=== PATIENT | female | born 1990 | race Asian ===

== ENCOUNTER 2017-08-21 12:18 | Emergency (ER) | payer OTHER ==
[~2017-08-21] VITALS: Ht 160 cm; Wt 61.2 kg
[2017-08-21] MEDS ORDERED: HYDROcodone/APAP 5 MG/325 MG (LORTAB) TAB PO ONE (14:00)
[2017-08-21 14:01] LABS: BASOPHILS % (AUTO) 1 % (0-10); EOSINOPHILS # (AUTO) 0.1 10^3/uL (0.0-0.3); EOSINOPHILS % (AUTO) 2 % (0-10); LYMPHOCYTES # (AUTO) 2.6 X 10^3 (1.0-4.0); LYMPHOCYTES % (AUTO) 44 % (12-44); MEAN CORPUSCULAR HEMOGLOBIN 28 PG (25-34); MEAN CORPUSCULAR HGB CONC 34 G/DL (32-36); MEAN CORPUSCULAR VOLUME 81 FL (80-99); MEAN PLATELET VOLUME 10.4 FL (7.4-10.4); MONOCYTES # (AUTO) 0.7 X 10^3 (0.0-1.0); MONOCYTES % (AUTO) 11 % (0-12); NEUTROPHILS # (AUTO) 2.5 X 10^3 (1.8-7.8); NEUTROPHILS % (AUTO) 42 % (42-75); PLATELET COUNT 267 10^3/uL (130-400); RED BLOOD COUNT 4.71 10^6/uL (4.35-5.85); RED CELL DISTRIBUTION WIDTH 13.3 % (10.0-14.5); WHITE BLOOD COUNT 5.9 10^3/uL (4.3-11.0)
--- NOTE | 2017-08-21 14:33 | ED GU-Female ---
General Chief Complaint: -Female Stated Complaint: BLEEDING,POSITIVE PREG TEST Nursing Triage Note: PT. IS PER . PT. STARTED BLEEDING YESTERDAY AT 10PM. PT. HAS PAIN TO LOWER ABD THAT RADIATES TO HER BACK Nursing Sepsis Screen: No Definite Risk Source: patient Exam Limitations: no limitations History of Present Illness Time seen by provider: 14:30 Initial Comments To ER with lower vaginal bleeding and abdominal cramping. His began yesterday at 10 p.m. Just found out yesterday that she was . . Started Tamiflu yesterday for upper respiratory infection. Timing/Duration: yesterday Severity/Quality: moderate Location: suprapubic Radiation: none Activities at Onset: none Prior Genitourinary Problems: none Associated Symptoms: denies symptoms Allergies and Home Medications Allergies Coded Allergies: No Known Drug Allergies (Unverified , 08/21/17) Constitutional: see HPI EENTM: see HPI Respiratory: no symptoms reported Cardiovascular: no symptoms reported Genitourinary: see HPI Musculoskeletal: no symptoms reported Skin: no symptoms reported Psychiatric/Neurological: No Symptoms Reported Past Sflxiqi-Vgknld-Cjqaxr Hx Patient Social History Alcohol Use: Denies Use Recreational Drug Use: No Smoking Status: Never a Smoker Recent Foreign Travel: No Contact w/Someone Who Travel: No Recent Infectious Disease Expo: No Recent Hopitalizations: No Surgeries History of Surgeries: No Respiratory History of Respiratory Disorde: No Cardiovascular History of Cardiac Disorders: No Neurological History of Neurological Disord: No Reproductive System : Yes Last Menstrual Period: Jul 15, 2017 Genitourinary History of Genitourinary Disor: No Gastrointestinal History of Gastrointestinal Di: No Musculoskeletal History of Musculoskeletal Dis: No Endocrine History of Endocrine Disorders: No HEENT History of HEENT Disorders: No Cancer History of Cancer: No Psychosocial History of Psychiatric Problem: No Integumentary History of Skin or Integumenta: No Blood Transfusions History of Blood Disorders: No Adverse Reaction to a Blood Tr: No Physical Exam Vital Signs Vital Sign - Last 12Hours 08/21/17 13:33 Temp 98.4 Pulse 72 Resp 18 B/P (MAP) 116/78 (91) Pulse Ox 99 Capillary Refill : Less Than 3 Seconds General Appearance: WD/WN, no apparent distress HEENT: PERRL/EOMI, normal ENT inspection Neck: non-tender, full range of motion Respiratory: no respiratory distress, no accessory muscle use Gastrointestinal: non tender, soft, tenderness ( implantation) Neurologic/Psychiatric: alert, normal mood/affect, oriented x 3 Skin: normal color, warm/dry Progress/Results/Core Measures Suspected Sepsis Recent Fever Within 48 Hours: Yes Infection Criteria Present: None New/Unexplained Altered Menta: No Sepsis Screen: No Definite Risk Sepsis Diagnosis: SIRS Temperature:98.4 Pulse: 72 Respiratory Rate: 18 Laboratory Tests 08/21/17 13:53: White Blood Count 5.9 Blood Pressure 116 /78 Mean: 91 Laboratory Tests 08/21/17 13:53: Platelet Count 267 Results/Orders Lab Results Laboratory Tests Test 08/21/17 13:53 Range/Units White Blood Count 5.9 4.3-11.0 10^3/uL Red Blood Count 4.71 4.35-5.85 10^6/uL Hemoglobin 13.1 11.5-16.0 G/DL Hematocrit 38 35-52 % Mean Corpuscular Volume 81 80-99 FL Mean Corpuscular Hemoglobin 28 25-34 PG Mean Corpuscular Hemoglobin Concent 34 32-36 G/DL Red Cell Distribution Width 13.3 10.0-14.5 % Platelet Count 267 130-400 10^3/uL Mean Platelet Volume 10.4 7.4-10.4 FL Neutrophils (%) (Auto) 42 42-75 % Lymphocytes (%) (Auto) 44 12-44 % Monocytes (%) (Auto) 11 0-12 % Eosinophils (%) (Auto) 2 0-10 % Basophils (%) (Auto) 1 0-10 % Neutrophils # (Auto) 2.5 1.8-7.8 X 10^3 Lymphocytes # (Auto) 2.6 1.0-4.0 X 10^3 Monocytes # (Auto) 0.7 0.0-1.0 X 10^3 Eosinophils # (Auto) 0.1 0.0-0.3 10^3/uL Basophils # (Auto) 0.0 0.0-0.1 10^3/uL Human Chorionic Gonadotropin, Quant 55 H <5 MIU/ML My Orders Orders - EWELINA SALAZAR [employer] PROFESSIONAL Cbc With Automated Diff (08/21/17 13:04) Abo Rh Type (08/21/17 13:04) Hcg,Quantitative (08/21/17 13:04) Ua Culture If Indicated (08/21/17 13:04) Hydrocodone/Apap 5/325 Tablet (Lortab 5 (08/21/17 14:00) Us Ob<14 Wks Sngle W/Transvag (08/21/17 13:57) Medications Given in ED Current Medications Medications Dose Ordered Sig/Oskar Route Start Time Stop Time Status Last Admin Dose Admin Acetaminophen/ Hydrocodone Bitart 1 tab ONCE ONCE PO 08/21/17 14:00 08/21/17 14:01 DC 08/21/17 14:02 1 TAB Vital Signs/I&O Vital Sign - Last 12Hours 08/21/17 13:33 Temp 98.4 Pulse 72 Resp 18 B/P (MAP) 116/78 (91) Pulse Ox 99 Capillary Refill : Less Than 3 Seconds Blood Pressure Mean: 91 Departure Impression Impression: Primary Impression: test positive Additional Impression: Vaginal bleeding Disposition: 01 HOME, SELF-CARE Condition: Stable Departure-Patient Inst. Decision time for Depature: 14:31 Referrals: NO,LOCAL PHYSICIAN (PCP/Family) Primary Care Physician Patient Instructions: IRREGULAR VAGINAL BLEEDING, - The First Month Add. Discharge Instructions: The pain that you are having in addition to the vaginal bleeding in the barely positive test likely represents a miscarriage. We expect cramping and bleeding will persist for a day or 2 as well as passage of some blood clots and tissue. Either way, you should follow up with your regular physician next week to recheck the hCG levels (Blood work) All discharge instructions reviewed with patient and/or family. Voiced understanding. EWELINA SALAZAR APRN Aug 21, 2017 14:33
[2017-08-21 14:36] LABS: BILIRUBIN,URINE NEGATIVE (NEGATIVE); KETONES,URINE NEGATIVE (NEGATIVE); LEUKOCYTE ESTERASE ,URINE 1+ (NEGATIVE); NITRITE,URINE NEGATIVE (NEGATIVE); PH,URINE 6 (5-9); PROTEIN,URINE NEGATIVE (NEGATIVE); UROBILINOGEN,URINE NORMAL (NORMAL)
[2017-08-21 14:43] LABS: SQUAMOUS EPITHELIAL CELL,UR 0-2 /HPF; WBC,URINE 0-2 /HPF
[2017-08-21 15:03] VITALS: BP 118/76
--- NOTE | 2017-08-21 15:22 | Diagnostic Imaging Report ---
EXAMINATION: OB ultrasound. INDICATION: Bleeding and passage of a large clot. FINDINGS: The uterus is 6.5 x 4.5 x 3.7 cm in size. The endometrial stripe is 6 mm in thickness. There is no intrauterine identified. The right ovary is 3.6 x 1.8 x 2.2 cm and the left ovary is 3.4 x 2.2 x 1.5 cm. Normal follicles are seen. There are arterial waveforms demonstrated over both ovaries. Minimal amount of simple appearing free fluid in the pelvis is seen. IMPRESSION: The findings could be due to miscarriage, early normal or occult ectopic . Correlate with serial beta-hCG and followup ultrasound exam. Dictated by: Dictated on workstation # [id number]
== END 2017-08-21 15:03 | disposition home or self-care (01) ==
LOC: ER 12:23
DX: O20.9 Hemorrhage in early pregnancy, unspecified (principal); Z3A.00 Weeks of gestation of pregnancy not specified
CPT/HCPCS: 36415; 76801; 76817; 81000; 84702; 85025; 86900; 86901; 99282

== ENCOUNTER → 2017-10-17 | Outpatient (CLI) | payer OTHER ==
--- NOTE | 2017-10-17 14:47 | Diagnostic Imaging Report ---
PROCEDURE: US OB SINGLE FETUS <14 WKS. TECHNIQUE: Multiple real-time grayscale images were obtained over the gravid uterus in various projections. INDICATION: Cramping and vaginal bleeding. FINDINGS: There is an intrauterine gestational sac containing a pole. The crown-rump length measurement is 9 mm consistent with 7 weeks 0 days gestation. heart rate is recorded at 132 beats per minute. No perigestational sac hemorrhage is detected. Adnexal evaluation is performed. The ovaries are not visualized due to overlying bowel gas. No definite adnexal mass or free fluid is seen. IMPRESSION: Single live IUP of approximately 7 weeks 0 days gestational age. The estimated date of confinement sonographically is 06/05/2018. Dictated by: Dictated on workstation # [id number]
== END ==
LOC: RAD 13:56
PROVIDERS: ATTEND Nurse Practitioner Family
DX: O20.9 Hemorrhage in early pregnancy, unspecified (principal); Z3A.01 Less than 8 weeks gestation of pregnancy
CPT/HCPCS: 76801

== ENCOUNTER → 2018-01-01 | Outpatient (CLI) | payer OTHER ==
[~2018-01-01] MED LIST: HYDR-757 PO; IBUP-1773 PO
--- NOTE | 2018-01-01 15:01 | Diagnostic Imaging Report ---
INDICATION: Vaginal bleeding. TECHNIQUE: Multiple Real-time grayscale images were obtained over the gravid uterus. COMPARISON: 10/17/2017. FINDINGS: There is an intrauterine fetus present of approximately 14 weeks gestation; however, no heartbeat is identified on today's study, consistent with demise. The placenta is developing posteriorly. No perigestational sac hemorrhage is detected. Biometrical measurements are as follows: Biparietal 2.3 cm, age 13 weeks 6 days. Head circumference 9.7 cm, age 14 weeks 4 days. Abdominal circumference 7.8 cm, age 14 weeks 2 days. Femur length 1.6 cm, age 14 weeks 4 days. Sonographic estimate age: 14 weeks 3 days. Sonographic estimated date of delivery: 06/29/18. Estimated Weight: 97 gm (+/- 14 gm). LMP percentile: 2%. heart rate: none beats per minute. number: 1 of 1. IMPRESSION: Single intrauterine fetus of approximately 14 weeks 3 days gestational age. No heartbeat is identified, consistent with demise. Dictated by: Dictated on workstation # [id number]
== END ==
LOC: RAD 14:06
PROVIDERS: ATTEND Family Medicine
DX: O20.9 Hemorrhage in early pregnancy, unspecified (principal); Z3A.14 14 weeks gestation of pregnancy
CPT/HCPCS: 76805

== ENCOUNTER 2018-01-02 15:41 | Day surgery (SDC) | payer OTHER ==
[~2018-01-02] VITALS: Ht 153.7 cm; Wt 54.4 kg
[2018-01-02 15:40] VITALS: BP 102/67
--- OUTSIDE RECORDS SUMMARY | 2018-01-02 15:45 | XMS REPORT ---
Author Author MARI GRIFFIN [facility] Address [address] [place] [address] Care Team Providers Care Sign Shop Supervisor Name Role Phone MARI GRIFFIN Unavailable PROBLEMS Unknown Problems ALLERGIES No Known Allergies ENCOUNTERS Encounter Location Date Diagnosis [address] [address] December, [address] [address] Oct, care in first trimester Z34.91 and 13 weeks gestation of Z3A.[address] [address] 28 Oct, 2017 Normal in multigravida Z34.80 and 8 weeks gestation of Z3A.08 [place] [id number] [place] [address] 19 Oct, 2017 14 weeks gestation of Z3A.14 [place] [id number] [place] [address] Oct, [facility] [address] [place], [place] [id number] [place] [phone] Oct, Encounter for test, result positive Z32.01 and 14 weeks gestation of Z3A.[address] [address] Aug, Influenza J11.1 [facility] [address] [place] [id number] [place] [phone] Aug, Influenza J11.1 and , unspecified gestational age Z34.90 [id number] [place] [address] 18 Aug, 2017 Encounter for test Z32.00 [place] [address] [place] [address] [id number] [address] May, Encounter for visit Z39.2 and Cold intolerance R68.89 [place] [address] [facility] [id number] [address] Mar, Screening for deficiency anemia Z13.0 IMMUNIZATIONS No Known Immunizations SOCIAL HISTORY Never Assessed REASON FOR VISIT RE-zpfuklvima-TLxZvwrdi,RN, Delivered in [facility] 01/03. PLAN OF CARE Activity Details Follow Up prn Reason: VITAL SIGNS Height 59 in 2017-05-15 Weight 121 lbs 2017-05-15 Temperature 98.5 degrees Fahrenheit 2017-05-15 Heart Rate 80 bpm 2017-05-15 Respiratory Rate 16 2017-05-15 BMI 24.44 kg/m2 2017-05-15 Blood pressure systolic 90 mmHg 2017-05-15 Blood pressure diastolic 60 mmHg 2017-05-15 MEDICATIONS Unknown Medications RESULTS No Results PROCEDURES Procedure Date Ordered Result Body Site ASSAY THYROID STIM HORMONE May 15, 2017 COMPLETE CBC W/AUTO DIFF WBC May 15, 2017 VENIPUNCT, ROUTINE* May 15, 2017 INSTRUCTIONS MEDICATIONS ADMINISTERED No Known Medications
--- OUTSIDE RECORDS SUMMARY | 2018-01-02 15:45 | XMS REPORT ---
Author Author GENE LUIS [facility] Address [address] [place] [address] Care Team Providers Care Social Media Analyst Name Role Phone GENE LUIS Unavailable PROBLEMS Unknown Problems ALLERGIES No Information ENCOUNTERS Encounter Location Date Diagnosis [address] [address] December, [address] [address] Oct, care in first trimester Z34.91 and 13 weeks gestation of Z3A.[address] [address] 28 Oct, 2017 Normal in multigravida Z34.80 and 8 weeks gestation of Z3A.[address] [address] 19 Oct, 2017 14 weeks gestation of Z3A.[address] [address] Oct, [facility] [address] [place] [phone] 14 Oct, 2017 Encounter for test, result positive Z32.01 and 14 weeks gestation of Z3A.[address] [address] Aug, Influenza J11.1 [facility] [address] [place] [address] Aug, Influenza J11.1 and , unspecified gestational age Z34.90 [address] [place] [address] Aug, Encounter for test Z32.00 [facility] [id number] [address] 13 May, 2017 Encounter for visit Z39.2 and Cold intolerance R68.89 [facility] [address] [facility] [id number] [address] Mar, Screening for deficiency anemia Z13.0 IMMUNIZATIONS No Known Immunizations SOCIAL HISTORY Never Assessed REASON FOR VISIT [facility] Hemoglobin--[facility] PLAN OF CARE VITAL SIGNS MEDICATIONS Unknown Medications RESULTS Name Result Date Reference Range HEMOGLOBIN (IN HOUSE) 2017-03-29 HEMOGLOBIN 14.0 11.5 - 16 gm/dL Lot # [id number] Exp date 06/28/18 PROCEDURES Procedure Date Ordered Result Body Site HEMOGLOBIN March 29, 2017 INSTRUCTIONS MEDICATIONS ADMINISTERED No Known Medications
[2018-01-02 16:15] LABS: BASOPHILS # (AUTO) 0.1 10^3/uL (0.0-0.1); BASOPHILS % (AUTO) 1 % (0-10); EOSINOPHILS # (AUTO) 0.2 10^3/uL (0.0-0.3); EOSINOPHILS % (AUTO) 2 % (0-10); HEMATOCRIT 39 % (35-52); HEMOGLOBIN 13.5 G/DL (11.5-16.0); LYMPHOCYTES # (AUTO) 2.6 X 10^3 (1.0-4.0); LYMPHOCYTES % (AUTO) 31 % (12-44); MEAN CORPUSCULAR HEMOGLOBIN 29 PG (25-34); MEAN CORPUSCULAR HGB CONC 35 G/DL (32-36); MEAN CORPUSCULAR VOLUME 82 FL (80-99); MEAN PLATELET VOLUME 10.5 FL (7.4-10.4); MONOCYTES # (AUTO) 0.4 X 10^3 (0.0-1.0); MONOCYTES % (AUTO) 5 % (0-12); NEUTROPHILS # (AUTO) 5.1 X 10^3 (1.8-7.8); NEUTROPHILS % (AUTO) 61 % (42-75); PLATELET COUNT 298 10^3/uL (130-400); RED BLOOD COUNT 4.71 10^6/uL (4.35-5.85); WHITE BLOOD COUNT 8.3 10^3/uL (4.3-11.0)
[2018-01-02] MEDS ORDERED: SEVOFLURANE (ULTANE) 15 ML INHAL SOLN ONE (16:22)
[2018-01-02] MEDS ORDERED: ONDANSETRON 4 MG/2 ML (SDV) Z0FRAN ONE (16:22)
[2018-01-02] MEDS ORDERED: DEXAMETHASONE 10 MG/ML (DECADRON) 1 ML VIAL ONE (16:22)
[2018-01-02] MEDS ORDERED: proPOfol 200 MG/20 ML (DIPRIVAN) VIAL IV ONE (16:22)
[2018-01-02] MEDS ORDERED: LIDOCAINE PF 2% 5 ML (XYLOCAINE) VIAL ONE (16:22)
[2018-01-02] MEDS ORDERED: MIDAZOLAM 2 MG/2 ML (VERSED) VIAL ONE (16:23)
[2018-01-02] MEDS ORDERED: fentaNYL INJECTION 100 MCG/2 ML AMP ONE (16:23)
[2018-01-02] MEDS ORDERED: DOXYCYCLINE INJECTION 100 MG in NS (IVPB) 100 ML IV ONE (16:45)
[2018-01-02] MEDS ORDERED: CATHETER FLUSH 10 ML SYR IV PRN (16:45)
[2018-01-02] MEDS ORDERED: LACTATED RINGERS 1,000 ML IV SCH (16:45)
[2018-01-02] MEDS ORDERED: METHYLERGONOVINE 0.2 MG/ML (METHERGINE) AMP ONE (17:11)
[2018-01-02] MEDS ORDERED: MEPERIDINE (DEMEROL) INJ 50 MG/ML ONE (17:12)
[2018-01-02] MEDS ORDERED: KETOROLAC 30 MG/ML VIAL ONE (17:12)
[2018-01-02] MEDS ORDERED: morphine INJ 10 MG/ML 1ML (SYR OR VIAL) ONE (17:13)
[2018-01-02] MEDS ORDERED: IBUP-1773 PO (18:02)
[2018-01-02] MEDS ORDERED: HYDR-757 PO (18:02)
--- NOTE | 2018-01-02 18:03 | Discharge Inst-Women's Service ---
Discharge Inst-Women's Serv Depart Medication/Instructions New, Converted or Re-Newed RX: RX on Chart Consults/Follow Up Additional Follow Up: Yes Activity Activity: Activity as Tolerated Driving Instructions: No Driving for 1 Week NO SMOKING: NO SMOKING Nothing Inside Vagina: No Douching, No [place], No Tampons Diet Discharge Diet: No Restrictions Symptoms to Report to : Bleeding Excessive, Pain Increased, Fever Over 101 Degrees F, Vaginal Bleeding Increase, Questions/Concerns For Any Problems or Questions: Contact Your Physician Skin/Wound Care Bathing Instructions: Shower (x 2 weeks) NAZARIO BRANDON DO January 02, 2018 6:03 pm
[2018-01-02] MEDS ORDERED: D5 LR IV SOLUTION 1,000 ML IV SCH (18:04)
[2018-01-02] MEDS: morphine INJ 10 MG/ML 1ML (SYR OR VIAL) IVP PRN ×2 (18:05→18:10)
[2018-01-02] MEDS ORDERED: ONDANSETRON 4 MG/2 ML (SDV) Z0FRAN IVP PRN ×2 (18:15)
[2018-01-02] MEDS ORDERED: MEPERIDINE (DEMEROL) INJ 50 MG/ML IVP PRN (18:15)
[2018-01-02] MEDS ORDERED: HYDROmorphone 1 MG/ML (DILAUDID) 1 ML SYRINGE IV PRN (18:15)
[2018-01-02] MEDS ORDERED: HYDROcodone/APAP 5 MG/325 MG (LORTAB) TAB PO PRN (18:15)
[2018-01-02] MEDS ORDERED: fentaNYL INJECTION 100 MCG/2 ML AMP IVP PRN (18:15)
[2018-01-02 19:35] VITALS: BP 101/64
[2018-01-02] MEDS ORDERED: IBUPROFEN 600 MG (MOTRIN) TAB PO ONE (20:02)
[2018-01-02 21:15] VITALS: BP 92/57
[2018-01-03] MEDS ORDERED: IBUPROFEN 600 MG (MOTRIN) TAB PO SCH
--- NOTE | 2018-01-03 03:31 | OPERATIVE REPORT ---
DATE OF SERVICE: PREOPERATIVE DIAGNOSIS: A 27-year-old female with 12 to 13 week intrauterine demise/missed AB. POSTOPERATIVE DIAGNOSIS: A 27-year-old female with 12 to 13 week intrauterine demise/missed AB. PROCEDURE: Dilatation and evacuation. SURGEON: Dr. Juan Caballero. ANESTHESIA: General endotracheal. ESTIMATED BLOOD LOSS: 300 mL. URINE OUTPUT: 200 mL clear and drained prior to the start of the procedure. FLUIDS: One liter lactated Ringer solution. FINDINGS: Pieces of products of conception consistent with 12-week loss and placental tissue and appropriately sized 12 to 13-week size uterus. SPECIMENS: Products of conception. INDICATIONS FOR PROCEDURE: This 27-year-old female was a consultation to me from [facility] for findings of loss at approximately 12 to 13 weeks with the patient having prior been told that she was approximately 17 weeks . She reported some bleeding and some pain and was scheduled to be seen in my office the next day. Today I saw her in my office and discussed with the patient conservative measures including oral misoprostol treatment versus proceeding with D and E. Her and her both agreed that they would prefer to have this done under anesthetic. Risks of procedure were discussed with the patient in detail including risk of bleeding, infection, damage to any surrounding structures including but not limited to bowel, bladder, ureter, kidneys, risk for possible need for blood transfusion, postoperative thromboembolic events. After everything was discussed with the patient, a consent was obtained in the preoperative area and the patient was taken to the operating room. OPERATIVE REPORT IN DETAIL: Once in the operating room, general anesthesia was found to be adequate. She was placed in dorsal lithotomy position, prepped and draped in normal sterile fashion. Straight catheterization was performed. A weighted speculum is then inserted to the patient's vagina. A right angle retractor was used to visualize cervix, it was grasped at 12 o'clock position using a long Allis clamp. I then gently sound the uterine cavity depth, which was found to be approximately 12 to 14 cm. I then gently dilated the cervix using Hegar dilators to maximum dilatation of approximately 1.8 cm at which point I proceed with starting to remove the contents of the uterus using a long ring forceps. I make several passes and attempts and tissue was removed and bleeding starts to occur at that point. I placed the Lincoln and suction curet into the patient's uterine cavity. A size 12 rigid is used. I then activated the Lincoln suction device, which reaches a maximum pressure of 55 mmHg and then methodically clear the endometrial cavity on several passes. I have to do some intermittent removal of larger pieces of tissue using the ring forceps, however, after I have ensured all of the tissue is removed, I performed a gentle curetting using a Banjo curette of the endometrial cavity after which there is little to no bleeding noted. All other instruments were removed from the patient's vagina. The patient tolerated the procedure well, sent to recovery area in stable condition. Lap and sponge counts correct at the end of procedure, instrument counts correct as well. 100 mg of doxycycline was given preoperatively for infection prophylaxis. Job ID: [id number] DocumentID: [id number] Dictated Date: 01/02/2018 18:17:54 Ship Superintendent Date: 01/03/2018 03:30:48 Dictated By: DO KALIE VIVEROS
== END 2018-01-02 22:10 | disposition home or self-care (01) ==
LOC: SDC 15:41 → WS 19:52 → SDC 22:10
PROVIDERS: ATTEND Obstetrics & Gynecology
DX: O02.1 Missed abortion (principal)
CPT/HCPCS: 36415; 85025; 86850; 86900; 86901; 87081; 88305